=== PATIENT | male | born 1995 | race Caucasian/White ===

== ENCOUNTER 2017-10-26 09:02 | Outpatient (CLI) | payer BC ==
[~2017-10-26 09:02] MED LIST: FEXO180T PO; ONDA4TAB8 PO
== END 2017-10-26 23:59 | disposition home or self-care (01) ==
LOC: CT 09:02
PROVIDERS: ATTEND Legal Medicine
DX: K11.20 Sialoadenitis, unspecified (principal)
CPT/HCPCS: 70486-TC

== ENCOUNTER 2018-09-09 13:24 | Outpatient (CLI) | payer BC | END 2018-09-09 23:59 | disposition home or self-care (01) | LOC: RAD 13:24 | PROVIDERS: ATTEND Legal Medicine | DX: S09.8XXA Other specified injuries of head, initial encounter (principal); W19.XXXA Unspecified fall, initial encounter; Y93.89 Activity, other specified; Y92.89 Other specified places as the place of occurrence of the external cause; Y99.8 Other external cause status | CPT/HCPCS: 70450-TC; 72040-TC; 72070-TC ==

== ENCOUNTER 2022-12-12 20:25 | Emergency (ER) | payer BC, OTHER ==
[~2022-12-12] VITALS: Ht 170.2 cm; Wt 140.6 kg
[2022-12-12] MEDS ORDERED: ONDANSETRON HCL/PF 4 MG/2 ML VIAL IVP ONE (21:00)
[2022-12-12] MEDS ORDERED: FAMOTIDINE/PF INJ 20 MG/2 ML VIAL IV ONE ×2 (21:00→21:36)
[2022-12-12] MEDS ORDERED: IV NS 0.9% 1,000 ML BAG IV ONE (21:00)
--- NOTE | 2022-12-12 21:13 | NUR ---
US TECH AT PT'S BEDSIDE
[2022-12-12] MEDS ORDERED: ONDANSETRON HCL/PF 4 MG/2 ML VIAL ONE (21:36)
[2022-12-12 21:47] LABS: BASOPHILS # (AUTO) 0.1 K/uL (0.0-0.2); BASOPHILS % (AUTO) 1.2 % (0.0-2.0); EOSINOPHILS % (AUTO) 0.1 % (0.0-6.0); HEMATOCRIT 45 % (39-51); HEMOGLOBIN 14.7 g/dL (13.5-17.5); LYMPHOCYTES # (AUTO) 0.8 K/uL (0.8-4.8); LYMPHOCYTES % (AUTO) 7.6 % (20.0-44.0); MEAN CORPUSCULAR HGB CONC 33 g/dl (31.0-36.0); MEAN CORPUSCULAR VOLUME 83 fL (80-96); MONOCYTES # (AUTO) 0.5 K/uL (0.1-1.30); MONOCYTES % (AUTO) 4.4 % (2.0-12.0); NEUTROPHILS # (AUTO) 9.3 K/uL (1.8-8.9); NEUTROPHILS % (AUTO) 86.7 % (43.0-81.0); PLATELET COUNT (AUTO) 214 K/uL (150-450); RED BLOOD CELL COUNT(AUTO) 5.34 MIL/uL (4.5-6.0); WHITE BLOOD COUNT (AUTO) 10.7 K/uL (4.3-11.0)
[2022-12-12 22:56] LABS: ALBUMIN 3.7 g/dL (3.4-5.0); BILIRUBIN,DIRECT 0.2 mg/dL (0.0-0.2); BILIRUBIN,TOTAL 0.8 mg/dL (0.2-1.0); CALCIUM, SERUM 8.2 mg/dL (8.5-10.1); POTASSIUM 3.4 mmol/L (3.5-5.1); TOTAL PROTEIN, SERUM 7.9 g/dL (6.4-8.2)
[2022-12-12] MEDS ORDERED: ONDA4TAB5 PO (23:07)
[2022-12-12 23:22] VITALS: BP 126/70
== END 2022-12-12 23:23 | disposition home or self-care (01) ==
LOC: ER 20:28
DX: A08.4 Viral intestinal infection, unspecified (principal); J45.909 Unspecified asthma, uncomplicated; Z79.899 Other long term (current) drug therapy
CPT/HCPCS: 99285; 96374; 76700; 96361; 96375; 85025; 80048; 83690; 80076; 36415; J3490; J2405; J7030